=== PATIENT | female | born 1930 | race Caucasian/White ===

== ENCOUNTER → 2018-03-19 | Outpatient (CLI) | payer MEDICARE, BC | LOC: GMAM 14:37 | PROVIDERS: ATTEND Family Medicine | DX: R06.02 Shortness of breath (principal); R74.8 Abnormal levels of other serum enzymes; I50.22 Chronic systolic (congestive) heart failure ==

== ENCOUNTER → 2020-01-22 | Outpatient (CLI) | payer MEDICARE, BC ==
--- NOTE | 2020-01-23 08:14 | CT ---
TECHNIQUE: Spiral CT images were obtained of the thoracic spine. Multiplanar reformats. This exam was performed according to our departmental dose-optimization program, which includes automated exposure control, adjustment of the mA and/or kV according to patient size and/or use of iterative reconstruction technique. CLINICAL HISTORY PROVIDED: PAIN IN THORACIC SPINE COMPARISON: Multiple examinations to include January 01, 2020 FINDINGS: Alignment: Accentuated kyphosis. No acute subluxation. Geographic Bone Lesion: No focal osseous lesion identified. Diffuse osteopenia. Fracture: Recent T6 superior endplate compression fracture with approximately 50-75% height loss anteriorly. No significant retropulsed bone. Chronic T7, T11 and T12 compression deformities. Degenerative Changes: Multilevel disc space narrowing with marginal osteophytes, vacuum disc phenomenon and facet hypertrophy. Central Canal Stenosis: Mild central canal stenosis at the T11 and T12. Mild central canal stenosis at the T7 vertebral body level. Vertebral body level Epidural Space: Unremarkable. Paraspinal Soft Tissues: Unremarkable. Incidental Findings: None of significance. IMPRESSION: Recent T6 superior endplate compression fracture with approximately 50-75% height loss anteriorly. Chronic T7, T11 and T12 compression fractures. Multilevel thoracic spondylosis. Electronically signed by: Chavez Cheng MD 01/23/2020 8:13 AM CDT
== END ==
LOC: CT 10:00
PROVIDERS: ATTEND Family Medicine
DX: S22.050A Wedge compression fracture of T5-T6 vertebra, initial encounter for closed fracture (principal); S22.060S Wedge compression fracture of T7-T8 vertebra, sequela; S22.080S Wedge compression fracture of T11-T12 vertebra, sequela; M47.894 Other spondylosis, thoracic region